=== PATIENT | male | born 1985 | race Caucasian/White ===

== ENCOUNTER 2018-11-12 18:05 | Emergency (ER) | payer OTHER, SELFPAY ==
[2018-11-12 18:06] VITALS: BP 133/73; PULSE 88; RESP 14; TEMP 36.7; O2SAT 98
--- NOTE | 2018-11-12 18:08 | DI.RAD.S_ITS ---
PROCEDURE: XR HAND LT MIN 3V INDICATIONS: hurt hand on door. TECHNIQUE: 3 views of the hand(s) acquired. COMPARISON: None. FINDINGS: Bones: No fractures or dislocations. Carpal bones are normally aligned. No suspicious bony lesions. Soft tissues: No suspicious soft tissue calcifications. IMPRESSION: No acute radiographic findings. If pain persists, repeat study in 5-7 days is recommended to exclude occult fracture. Dictated by: Gemma Ledezma M.D. on 11/12/2018 at 18:25 Approved by: Gemma Ledezma M.D. on 11/12/2018 at 18:26
--- NOTE | 2018-11-12 18:34 | ED_ITS ---
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 hand on the lumen and handle. He has had pain in the hand since. He states no difficulty using his fingers but a little bit sore. No pain in the wrist or other injuries. He has a small scrape on the hand, states he is not sure whether his tetanus vaccine is up-to-date. Related Data Home Medications Medication Instructions Recorded Confirmed No Known Home Medications 11/12/18 11/12/18 Allergies Allergy/AdvReac Type Severity Reaction Status Date / Time No Known Drug Allergies Allergy Verified 11/12/18 18:08 Review of Systems <Clari Silva PA-C - Last Filed: 11/12/18 21:21> Review of Systems ROS Unobtainable: All systems reviewed & are unremarkable except as noted in HPI and below PFSH <Clari Silva PA-C - Last Filed: 11/12/18 21:21> Medical History (Updated 11/12/18 @ 19:00 by Clari Silva PA-C) Healthy adult male (Chronic) Surgical History (Updated 11/12/18 @ 19:00 by Clari Silva PA-C) Status post appendectomy (Resolved) Social History Smoking Status: Never smoker Social History Smoking Status: Never smoker Exam <Clari Silva PA-C - Last Filed: 11/12/18 21:21> Narrative Exam Narrative: GENERAL APPEARANCE: Patient sitting comfortably, in no distress. LUNGS: Clear to auscultation bilaterally. HEART: Rate and rhythm regular without murmur, normal S1 and S2, no S3 or S4. MUSCULOSKELETAL: Trace left hand dorsum effusion. No point tenderness over the left wrist, full range of motion. Tender over the left 2nd and 3rd proximal to mid metacarpals, no tenderness elsewhere over the hand or fingers. Washer Carcass strength 5/5. His strength in each finger is intact against resistance in all mooney. NEUROVASCULAR: Left upper extremity sensation grossly intact, fingers are warm and pink Initial Vital Signs Initial Vital Signs: Vital Signs Temperature 98.1 F 11/12/18 18:06 Pulse Rate 88 11/12/18 18:06 Respiratory Rate 14 11/12/18 18:06 Blood Pressure 133/73 11/12/18 18:06 Pulse Oximetry 98 11/12/18 18:06 <DO Rigoberto De Luna Last Filed: 11/13/18 05:48> Initial Vital Signs Initial Vital Signs: Vital Signs Temperature 98.1 F 11/12/18 18:06 Pulse Rate 88 11/12/18 18:06 Respiratory Rate 14 11/12/18 18:06 Blood Pressure 133/73 11/12/18 18:06 Pulse Oximetry 98 11/12/18 18:06 Course <Clari Silva PA-C - Last Filed: 11/12/18 21:21> Orders Ordered: Discontinued Medications Diphtheria/Tetanus/Acell Pertussis (Adacel) 0.5 ml IM .ONCE ONE Stop: 11/12/18 18:51 Last Admin: 11/12/18 18:55 Dose: 0.5 ml Vital Signs - 8 hr 11/12/18 18:06 11/12/18 18:37 Temperature 98.1 F Pulse Rate 88 Pulse Rate [Right Radial] 70 Respiratory Rate 14 Blood Pressure 133/73 Pulse Oximetry 98 <DO Rigoberto De Luna Last Filed: 11/13/18 05:48> Orders Ordered: Discontinued Medications Diphtheria/Tetanus/Acell Pertussis (Adacel) 0.5 ml IM .ONCE ONE Stop: 11/12/18 18:51 Last Admin: 11/12/18 18:55 Dose: 0.5 ml Vital Signs - 8 hr 11/12/18 18:06 11/12/18 18:37 Temperature 98.1 F Pulse Rate 88 Pulse Rate [Right Radial] 70 Respiratory Rate 14 Blood Pressure 133/73 Pulse Oximetry 98 MDM - Extremity Injury (Upper) <DRAGAN Perez Last Filed: 11/12/18 21:21> Imaging Data hand: Radiologist's impression: [address] [address] XRay Report Signed Patient: Basilio AlbertMR#: [id number] : 1985Acct:[id number] Age/Sex: 33 / MDate of Service: 11/12/18 Loc: ED Accession Number: [id number] Procedure: XR hand LT min 3V Ordering Provider: Beena Ordonez D.O. PROCEDURE: XR HAND LT MIN 3V INDICATIONS: hurt hand on door. TECHNIQUE: 3 views of the hand(s) acquired. COMPARISON: None. FINDINGS: Bones: No fractures or dislocations. Carpal bones are normally aligned. No suspicious bony lesions. Soft tissues: No suspicious soft tissue calcifications. IMPRESSION: No acute radiographic findings. If pain persists, repeat study in 5-7 days is recommended to exclude occult fracture. Dictated by: Gemma Ledezma M.D. on 11/12/2018 at 18:25 Approved by: Gemma Ledezma M.D. on 11/12/2018 at 18:26 Discharge Plan Departure Patient Disposition: Home Clinical Impression: Contusion of hand Qualifiers: Encounter type: initial encounter Laterality: left Qualified Code(s): S60.222A - Contusion of left hand, initial encounter Discharge Date/Time: 11/12/18 19:07 Interventions: ED Discharge Assessment Last Done: 11/12/18 19:06 Instructions: DI for Hand Injury Activity Restrictions/Additional Instructions: Please wear the wrist splint for protection until your hand is feeling better. Take ibuprofen 6-800 mg every 8 hours to help with pain and swelling. You can add Tylenol in addition to this as needed. As we talked about, if this is not improving over the next week, you should see your PCP and have repeat x-rays. We have updated your tetanus vaccine here today. Thank you for what you do! Prescriptions: No Action No Known Home Medications RF: 0 Referrals: Jose Oneill [Other] <Leon Schroeder DO - Last Filed: 11/13/18 05:48> Cosign ED Attending Matthewature Attestation: I was immediately available in the [facility] tment for consultation. Documentation has been reviewed. I agree with assessment and plan.
[2018-11-12 18:37] VITALS: PULSE 70
--- NOTE | 2018-11-12 18:38 | PC.NURSE ---
CSM wnl. Pain worse w/ extension of fingers. Strong grasp w/o increased pain.
[2018-11-12] MEDS: TET,DIPH,PERTUSS(ACELL),VAC/PF 0.5 ML SYRINGE IM (18:55)
== END 2018-11-12 19:07 | disposition home or self-care (01) ==
PROVIDERS: Emergency Provider Internal Medicine
DX: S60.222A Contusion of left hand, initial encounter (principal); Y99.0 Civilian activity done for income or pay; Z23 Encounter for immunization
CPT/HCPCS: 73130; 90471; 99282; 99283; 90715

== ENCOUNTER 2020-03-06 15:08 | Emergency (ER) | payer OTHER, SELFPAY ==
[2020-03-06 15:10] VITALS: BP 134/64; PULSE 97; RESP 16; TEMP 36.9; O2SAT 99; BMI 28.8
--- NOTE | 2020-03-06 15:26 | ED.GENADULT ---
HPI - General Adult General Chief complaint: Blood/Body fluid exposure Stated complaint: Spit in face and eyes Time Seen by Provider: 03/06/20 15:14 Source: patient Mode of arrival: Ambulatory Limitations: no limitations History of Present Illness HPI narrative: This is a healthy 34-year-old male comes to emergency department with complaint of bodily fluid exposure to both eyes. Patient states that the sore throat patient it in both of his eyes. He was not able to wash his eyes but did wipe face. Patient is healthy, he has had appendectomy but no other medical issues. No chronic medications. He is up-to-date with immunizations except for his hepatitis-B series. Related Data Home Medications Medication Instructions Recorded Confirmed No Known Home Medications 11/12/18 11/12/18 Allergies Allergy/AdvReac Type Severity Reaction Status Date / Time No Known Drug Allergies Allergy Verified 03/06/20 15:17 Review of Systems Review of Systems ROS Unobtainable: All systems reviewed & are unremarkable except as noted in HPI and below Patient History Medical History Healthy adult male (Chronic) Surgical History Status post appendectomy (Resolved) Social History Smoking Status: Never smoker Smoking Status: Never smoker alcohol intake frequency: 0-2 drinks per day Substance Use Type: does not use Exam Narrative Exam Narrative: GENERAL: Alert and oriented x three, well-nourished, well-appearing male in no acute distress HEENT: Head normocephalic, atraumatic, EOMI, pupils reactive, face symmetric, moist mucous membranes NECK: Supple, full range of motion CARDIOVASCULAR: Regular rate and rhythm without murmurs, rubs or gallops. RESPIRATORY: Breath sounds equal bilaterally, no wheezes rales or rhonchi. EXTREMITIES: Normal range of motion, no clubbing or edema. Neurovascularly intact NEUROLOGICAL: Cranial nerves II through XII grossly intact. Moving all extremities SKIN: Warm, dry, no petechiae, no rashes or lesions. Initial Vital Signs Initial Vital Signs: Vital Signs Temperature 98.5 F 03/06/20 15:10 Pulse Rate 97 H 03/06/20 15:10 Respiratory Rate 16 03/06/20 15:10 Blood Pressure 134/64 03/06/20 15:10 Pulse Oximetry 99 03/06/20 15:10 Course Orders Ordered: ED Orders 03/06/20 15:50 Alanine Aminotransferase Stat HIV 1 & 2 Ab/Ag 4th Gen Combo Stat Hep C Virus Ab w/Reflex Quant Stat Discontinued Medications Hepatitis B Immune Globulin (Nabi-Hb) 5 ml 0.06 ml/kg (5.2 ml) IM NOW ONE Stop: 03/06/20 16:16 Last Admin: 03/06/20 16:37 Dose: 5 ml Documented by: LACHELLE Hepatitis B Vaccine (Engerix-B) 20 mcg IM .ONCE ONE Stop: 03/06/20 15:44 Last Admin: 03/06/20 16:16 Dose: 20 mcg Documented by: LACHELLE Vital Signs Vital signs: Vital Signs - 8 hr 03/06/20 15:10 Temperature 98.5 F Pulse Rate 97 H Respiratory Rate 16 Blood Pressure 134/64 Pulse Oximetry 99 Medical Decision Making Lab Data Labs: Lab Results 03/06/20 03/06/20 03/06/20 Range/Units 15:50 15:50 15:50 ALT 35 (<50) IU/L Hepatitis C Antibody Negative (NEGATIVE) s/c HIV 1&2 Ab/P24 Ag 4thGn Negative (NEGATIVE) MDM Narrative Medical decision making narrative: Discussed with patient at this time will start hepatitis immunization and immunoglobulin as he has not had his hep B series. And source patient status is unknown and will be unknown for sever. We discussed HIV prophylaxis and will await results from the source patient before starting this. Patient updated with results for himself and source patient, both are negative for Hep C and HIV. I did encourage him to get the rest of the Hep B vaccine series. Discharge Plan Departure Patient Disposition: Home Clinical Impression: Exposure to blood or body fluid Discharge Date/Time: 03/06/20 16:40 Instructions: DI for Accidental Exposure to Body Fluids Activity Restrictions/Additional Instructions: Follow up with primary care in the next 3, 6 months and 1 year for repeat testing, you may obtain this thru [facility] or your primary care provider. You may continue any home medications. I would encourage getting immunized with the full hepatitis B series. You have received the first dose and the immune globulin. If you have not heard back with results by 6pm, please call the ER [phone] Blackmon. Prescriptions: No Action No Known Home Medications RF: 0
[2020-03-06 16:13] LABS: Alanine Aminotransferase 35 IU/L (<50)
[2020-03-06] MEDS: HEPATITIS B VAC (ENGERIX-B) 10 MCG/0.5 ML VIAL 20 MCG IM (16:16)
[2020-03-06] MEDS: HEPATITIS B IMMUNE GLOBULIN 5 ML VIAL IM (16:37)
[2020-03-06 17:33] LABS: HIV 1 & 2 Ab/Ag 4th Gen Combo NEGATIVE (NEGATIVE)
[2020-03-06 17:42] LABS: Hep C Virus Ab w/Reflex Quant NEGATIVE s/c (NEGATIVE)
[2020-03-08 04:21] LABS: Hepatitis B Surf Ab Qualitativ Non Reactive (.)
== END 2020-03-06 16:40 | disposition home or self-care (01) ==
PROVIDERS: Emergency Provider Emergency Medicine
DX: Z77.21 Contact with and (suspected) exposure to potentially hazardous body fluids (principal); Y99.0 Civilian activity done for income or pay; Z23 Encounter for immunization
CPT/HCPCS: 36415; 84460; 86706; 86803; 87389; 90471; 90746; 96372; 99283; J1571